=== PATIENT | female | born 1990 | race Caucasian/White ===

== ENCOUNTER 2018-01-20 08:30 | Emergency (ER) | payer OTHER ==
[~2018-01-20] VITALS: Ht 154.9 cm; Wt 48.5 kg
[~2018-01-20 08:30] MED LIST: ABILIFY 5 MG TAB5 MG PO; ADDERALL 30 MG30 MG PO; ATIVAN0.5 MG PO; BUTALB-APAP-CA1 EACH PO; CYMBALTA30 MG PO; FIORICET 50-301 EACH PO; [UNRECOGNIZED DRUG - OTHER] PO
[2018-01-20] MEDS ORDERED: [UNRECOGNIZED DRUG - OTHER] PO (08:40)
[2018-01-20 08:55] LABS: URINE BILIRUBIN NEGATIVE (Negative); URINE BLOOD 1+ (Negative); URINE CLARITY CLEAR; URINE COLOR YELLOW; URINE GLUCOSE-RANDOM NEGATIVE (Negative); URINE KETONES NEGATIVE (Negative); URINE LEUKOCYTES-REFLEX NEGATIVE (Negative); URINE NITRITE-REFLEX NEGATIVE (Negative); URINE PROTEIN NEGATIVE (Negative); URINE SPECIFIC GRAVITY 1.015 (1.005-1.030); URINE UROBILINOGEN 0.2 E.U./dl (0.2-1.0)
[2018-01-20 08:57] LABS: ABSOLUTE BASOPHILS 0.1 thou/uL (0.0-0.2); ABSOLUTE EOSINOPHILS 0.3 thou/uL (0.0-0.7); ABSOLUTE LYMPHOCYTES 2.3 thou/uL (0.8-5.3); ABSOLUTE MONOCYTES 0.4 thou/uL (0.0-1.2); ABSOLUTE NEUTROPHILS 4.4 thou/uL (1.6-8.1); BASOPHILS 0.7 %; EOSINOPHILS 3.6 %; HEMATOCRIT 40.9 % (37.0-47.0); HEMOGLOBIN 13.6 gm/dL (12.0-15.0); LYMPHOCYTES 30.6 %; MCH 30.5 pg (26.0-34.0); MCHC 33.3 g/dL (28.0-37.0); MCV 91.6 fL (80.0-100.0); MONOCYTES 5.7 %; MPV 7.6 fl. (7.2-11.1); NUCLEATED RBCS 0 /100WBC; PLATELET COUNT* 338 thou/uL (150-400); POLYS 59.4 %; RBC 4.47 mil/uL (4.20-5.00); WBC 7.4 thou/uL (4.0-11.0)
[2018-01-20 09:03] LABS: CREATININE 0.5 mg/dL (0.6-1.3); POTASSIUM 3.9 mmol/L (3.5-5.1)
[2018-01-20 09:03] LABS: CASTS None Seen /LPF (None Seen); MUCUS 4-6 Moderate strn/LPF (None Seen); SQUAMOUS 4-10 Moderate /LPF (0-3)
[2018-01-20 09:04] LABS: BACTERIA-REFLEX None Seen /HPF (None Seen); CRYSTALS None Seen /LPF (None Seen); URINE RBC 0-2 Rare /HPF (0-2); URINE WBC-REFLEX 0-5 Rare /HPF (0-5)
[2018-01-20 09:08] LABS: ALBUMIN 3.8 g/dL (3.4-5.0); TOTAL BILIRUBIN 0.3 mg/dL (<0.1-1.0); TOTAL PROTEIN 7.5 g/dL (6.4-8.2)
[2018-01-20 10:15] VITALS: BP 149/88
[2018-01-20] MEDS ORDERED: ULTRAM 50MG TAB50 MG PO (10:18)
[2018-01-20] MEDS ORDERED: ZOFRAN ODT4 MG SUBLING (10:18)
== END 2018-01-20 10:15 | disposition home or self-care (01) ==
LOC: M.ERS 08:30
PROVIDERS: Family Medicine
DX: G43.909 Migraine, unspecified, not intractable, without status migrainosus (principal); F17.210 Nicotine dependence, cigarettes, uncomplicated; Z88.0 Allergy status to penicillin; Z88.1 Allergy status to other antibiotic agents; Z90.49 Acquired absence of other specified parts of digestive tract

== ENCOUNTER → 2018-04-10 | Outpatient (CLI) | payer OTHER ==
[~2018-04-10] MED LIST changes: +ULTRAM 50MG TAB50 MG PO; +ZOFRAN ODT4 MG SUBLING
== END ==
LOC: M.ULTRA 11:00
DX: R10.32 Left lower quadrant pain (principal); R10.12 Left upper quadrant pain; Z90.49 Acquired absence of other specified parts of digestive tract

== ENCOUNTER 2019-02-24 20:45 | Emergency (ER) | payer OTHER, MEDICAID ==
[~2019-02-24] VITALS: Ht 154.9 cm; Wt 47.6 kg
[2019-02-24] MEDS ORDERED: EXCEDRIN CAPLE1 EACH PO (20:55)
[2019-02-24] MEDS ORDERED: PHENERGAN 25 MG25 M1 PO (22:02)
[2019-02-24 22:50] VITALS: BP 135/81
== END 2019-02-24 22:52 | disposition home or self-care (01) ==
LOC: M.ERS 20:45
DX: G43.909 Migraine, unspecified, not intractable, without status migrainosus (principal); Z90.49 Acquired absence of other specified parts of digestive tract; F17.210 Nicotine dependence, cigarettes, uncomplicated; Z88.0 Allergy status to penicillin; Z88.2 Allergy status to sulfonamides

== ENCOUNTER 2019-03-30 21:32 | Inpatient (IN) | payer OTHER, MEDICAID ==
[~2019-03-30] VITALS: Ht 154.9 cm; Wt 47.2 kg
--- NOTE | ~2019-03-30 | CON ---
[address] [address] CONSULTATION Name: CATHY CHOI Room: [address]#: [id number] Admission: 03/30/19 Attend Phys: Nayeli Romero Discharge: 03/31/19 Date of : 89 Report #: [id number] THIS REPORT FOR: //name// CC: Deirdre Chan DATE OF SERVICE: 03/31/2019 REFERRING PHYSICIAN: Dr. Symone Aleman. REASON FOR CONSULTATION: Right distal ureteral calculus and flank pain. HISTORY OF PRESENT ILLNESS: This is a 28-year-old female who reports passage of multiple stones spontaneously. She has seen a urologist, but is not sure who that was and states that it has been quite some time ago. She complains of a 3-4 week history of right-sided flank and abdominal pain as well as gross hematuria. Intermittent passage of clots. No passage of fragments. No difficulty voiding. No dysuria or fever. No nausea or vomiting. She has been straining her urine. She presented to the Emergency Department for worsening pain and was admitted. Urology was consulted. She reports her pain control is good at this time. PAST MEDICAL HISTORY: As above. Also, has a history of migraines and anxiety. ALLERGIES: INCLUDE CIPRO, PENICILLIN AND SULFA. SHE HAS BEEN GIVEN ROCEPHIN EMPIRICALLY. FAMILY HISTORY: Significant for stones in her brother and uncle. No other kidney disease in the family. PAST SURGICAL HISTORY: Include shoulder surgery, appendectomy, uterine surgery and cholecystectomy. SOCIAL HISTORY: She denies use of alcohol. Smokes tobacco daily. MEDICATION: List is reviewed. REVIEW OF SYSTEMS: As per the history of present illness. She denies any other recent illness. Denies chest pain, shortness of breath or cough. Denies numbness, weakness, dizziness. PHYSICAL EXAMINATION: VITAL SIGNS: Temperature 36.6, pulse 63, respirations 16, blood pressure 95/53. GENERAL: This is a 28-year-old female in no acute distress. She is awake, alert and answers questions appropriately. HEENT: Normocephalic, atraumatic. [place] [address] CONSULTATION Name: CATHY CHOI Room: [address]#: [id number] Admission: 03/30/19 Attend Phys: Nayeli Romero Discharge: 03/31/19 Date of : 89 Report #: [id number] Oropharynx is clear. NECK: Supple. No JVD. Respiratory effort and excursion are normal. LUNGS: Clear. CARDIAC: Rhythm is regular. Radial pulses are palpable. ABDOMEN: Soft, nontender and nondistended. There is no suprapubic fullness or tenderness. Spine is nontender. Right costovertebral angle is mildly tender. There is no left-sided tenderness. EXTREMITIES: Warm. Moves all extremities well. No peripheral edema. PELVIC: Deferred. LABORATORY DATA: Include a urinalysis showing 3-10 red cells, 6-15 white cells, positive epithelial cells and bacteria. Culture on that is pending. Urine test was negative. Sodium 142, potassium 3.6, chloride 106, CO2 29, BUN 12, creatinine 0.6, glucose 89. Hemoglobin 12.4, white count 8.9, platelet count 328,000. Noncontrast CT of the abdomen and pelvis report and images were reviewed. There are bilateral renal calculi. Some right hydronephrosis. There is a 4 mm stone in the region of the right distal ureter/ureterovesical junction. Clinical situation and options for management were discussed at length with the patient and her father who was present in the room. Options for management would include inpatient versus outpatient hydration/medical expulsive therapy. She has been started on Flomax. Other options would include outpatient shockwave lithotripsy and inpatient versus outpatient ureteroscopic stone manipulation. These options and their risks/benefits as well as post-procedural care and followup were discussed in detail. After considering options, she would like a trial of outpatient medical expulsive therapy. Prescriptions for Flomax and Gillett (30) were written. Risks and side effects were discussed. The patient was advised to return to the hospital for difficulty with pain control or vomiting or fever. Otherwise, she was provided contact information and advised to call the office when it is open Tuesday to set further followup. IMPRESSION: Right distal ureteral calculus with flank pain. Bilateral renal calculi. PLAN: Outpatient medical expulsive therapy if okay with primary service. Empiric antibiotics are not necessary given lack of fever, normal white count, likely contaminant on urinalysis. Culture is pending. By: [id number] 05Jeremy Kwan MD /[place]
[~2019-03-30 21:32] MED LIST changes: +EXCEDRIN CAPLE1 EACH PO; +PHENERGAN 25 MG25 M1 PO
[2019-03-30 21:50] VITALS: BP 126/74
[2019-03-30 21:50] LABS: URINE BILIRUBIN NEGATIVE (Negative); URINE BLOOD 3+ (Negative); URINE CLARITY CLEAR; URINE COLOR YELLOW; URINE GLUCOSE-RANDOM NEGATIVE (Negative); URINE KETONES NEGATIVE (Negative); URINE LEUKOCYTES-REFLEX 1+ (Negative); URINE NITRITE-REFLEX NEGATIVE (Negative); URINE PROTEIN NEGATIVE (Negative); URINE SPECIFIC GRAVITY 1.025 (1.005-1.030); URINE UROBILINOGEN 0.2 E.U./dl (0.2-1.0)
[2019-03-30] MEDS ORDERED: KEFLEX (21:54)
[2019-03-30 21:57] LABS: CASTS None Seen /LPF (None Seen); CRYSTALS None Seen /LPF (None Seen); MUCUS 0-3 Light strn/LPF (None Seen); SQUAMOUS 4-10 Moderate /LPF (0-3); URINE RBC 3-10 Few /HPF (0-2); URINE WBC-REFLEX 6-15 Few /HPF (0-5)
[2019-03-30 21:58] LABS: ABSOLUTE BASOPHILS 0.1 thou/uL (0.0-0.2); ABSOLUTE EOSINOPHILS 0.3 thou/uL (0.0-0.7); ABSOLUTE LYMPHOCYTES 3.9 thou/uL (0.8-5.3); ABSOLUTE MONOCYTES 0.5 thou/uL (0.0-1.2); ABSOLUTE NEUTROPHILS 4.1 thou/uL (1.6-8.1); BASOPHILS 0.9 %; EOSINOPHILS 3.9 %; HEMOGLOBIN 12.4 gm/dL (12.0-15.0); LYMPHOCYTES 43.8 %; MCHC 33.6 g/dL (28.0-37.0); MCV 95.2 fL (80.0-100.0); MONOCYTES 5.7 %; MPV 6.8 fl. (7.2-11.1); NUCLEATED RBCS 0 /100WBC; PLATELET COUNT* 328 thou/uL (150-400); POLYS 45.7 %; RBC 3.89 mil/uL (4.20-5.00); RDW-CV 13.1 % (10.5-14.5); WBC 8.9 thou/uL (4.0-11.0)
[2019-03-30 22:04] LABS: CALCIUM 9.2 mg/dL (8.5-10.1); CREATININE 0.6 mg/dL (0.6-1.3); POTASSIUM 3.6 mmol/L (3.5-5.1)
[2019-03-30 22:08] LABS: ALBUMIN 4.4 g/dL (3.4-5.0); TOTAL BILIRUBIN 0.4 mg/dL (<0.1-1.0); TOTAL PROTEIN 7.5 g/dL (6.4-8.2)
[2019-03-31 00:16] LABS: AMP/METHAMP POSITIVE (Negative); BARBITURATES Negative (Negative); BENZODIAZEPINES Negative (Negative); COCAINE Negative (Negative); METHADONE Negative (Negative); OPIATES Negative (Negative); PCP Negative (Negative); THC Negative (Negative)
[2019-03-31 03:38] VITALS: BP 106/61
[2019-03-31 07:17] VITALS: BP 95/53
--- NOTE | 2019-03-31 07:32 | NUR ---
UPON BOARDED ASSESSMENT THE PATIENT STATES SHE HAS HAD LARGER KIDNEY STONES IN THE PAST THAT SHE PASSED "JUST FINE" WITHOUT MEDICATION AND STATES SHE WOULD LIKE TO GO HOME IF UROLOGY APPROVES. PT TOLD SHE HAS ORDERS FOR BEING NPO. PT STATES SHE HAS A REALLY DRY MOUTH. PT GIVEN A MINT SWAB TO MOISTEN HER MOUTH WITH ORDERS NOT TO SWALLOW WATER.
[2019-03-31 10:47] VITALS: BP 95/53
[2019-03-31] MEDS ORDERED: NORCO 5-325 TA1 EAC1 PO (11:00)
[2019-03-31] MEDS ORDERED: FLOMAX0.4 MG PO (11:01)
[2019-03-31] MEDS ORDERED: MACROBID 100 M100 M2 PO (11:06)
--- NOTE | 2019-03-31 11:20 | NUR ---
PT WAS DISCHARGED ON INPATIENT SIDE BY [facility] [employer] EXAMINER.
--- NOTE | 2019-03-31 11:30 | NUR ---
MACROBID PRESCRIPTION CALLED INTO [facility] IN [place] BY VOICEMAIL. 2 PRESCRIPTIONS SENT WITH PATIENT.
[2019-03-31 11:31] VITALS: BP 105/63
== END 2019-03-31 11:20 | disposition home or self-care (01) | DRG 690 ==
LOC: M.ERS 21:32 → M.TBA-ER 23:27
PROVIDERS: Emergency Medicine; Nurse Practitioner Family; ADMIT Internal Medicine
DX: N13.6 Pyonephrosis (principal); G43.909 Migraine, unspecified, not intractable, without status migrainosus; Z90.49 Acquired absence of other specified parts of digestive tract; Z88.0 Allergy status to penicillin; Z88.5 Allergy status to narcotic agent; Z79.82 Long term (current) use of aspirin; Z79.899 Other long term (current) drug therapy

== ENCOUNTER 2019-06-08 19:07 | Emergency (ER) | payer OTHER, MEDICAID ==
[~2019-06-08] VITALS: Ht 154.9 cm; Wt 47.6 kg
[~2019-06-08 19:07] MED LIST changes: +FLOMAX0.4 MG PO; +KEFLEX; +MACROBID 100 M100 M2 PO; +NORCO 5-325 TA1 EAC1 PO
[2019-06-08 20:43] VITALS: BP 110/75
== END 2019-06-08 20:43 | disposition home or self-care (01) ==
LOC: M.ERS 19:07
DX: G43.909 Migraine, unspecified, not intractable, without status migrainosus (principal); F17.210 Nicotine dependence, cigarettes, uncomplicated; Z90.49 Acquired absence of other specified parts of digestive tract; Z87.442 Personal history of urinary calculi; Z98.890 Other specified postprocedural states; Z88.0 Allergy status to penicillin; Z88.1 Allergy status to other antibiotic agents; Z88.2 Allergy status to sulfonamides

== ENCOUNTER 2020-02-22 16:57 | Emergency (ER) | payer OTHER, MEDICAID ==
[~2020-02-22] VITALS: Ht 154.9 cm; Wt 45.4 kg
[2020-02-22 17:25] LABS: ABSOLUTE BASOPHILS 0.1 thou/uL (0.0-0.2); ABSOLUTE EOSINOPHILS 0.4 thou/uL (0.0-0.7); ABSOLUTE LYMPHOCYTES 3.5 thou/uL (0.8-5.3); ABSOLUTE MONOCYTES 0.5 thou/uL (0.0-1.2); ABSOLUTE NEUTROPHILS 2.9 thou/uL (1.6-8.1); BASOPHILS 1.1 %; HEMATOCRIT 36.3 % (37.0-47.0); HEMOGLOBIN 12.4 gm/dL (12.0-15.0); LYMPHOCYTES 47.4 %; MCH 32.7 pg (26.0-34.0); MCHC 34.1 g/dL (28.0-37.0); MCV 95.8 fL (80.0-100.0); MONOCYTES 7.1 %; MPV 7.1 fl. (7.2-11.1); NUCLEATED RBCS 0 /100WBC; PLATELET COUNT* 283 thou/uL (150-400); POLYS 39.4 %; RBC 3.79 mil/uL (4.20-5.00); WBC 7.5 thou/uL (4.0-11.0)
[2020-02-22 17:31] LABS: URINE BILIRUBIN NEGATIVE (Negative); URINE BLOOD 1+ (Negative); URINE CLARITY CLEAR; URINE COLOR YELLOW; URINE GLUCOSE-RANDOM NEGATIVE (Negative); URINE KETONES NEGATIVE (Negative); URINE LEUKOCYTES-REFLEX NEGATIVE (Negative); URINE NITRITE-REFLEX NEGATIVE (Negative); URINE PROTEIN NEGATIVE (Negative); URINE SPECIFIC GRAVITY >= 1.030 (1.005-1.030); URINE UROBILINOGEN 0.2 E.U./dl (0.2-1.0)
[2020-02-22 17:47] LABS: CALCIUM 8.7 mg/dL (8.5-10.1); CREATININE 0.6 mg/dL (0.6-1.3); POTASSIUM 3.8 mmol/L (3.5-5.1)
[2020-02-22 17:48] LABS: SQUAMOUS >10 Many /LPF (0-3)
[2020-02-22 17:49] LABS: MUCUS 4-6 Moderate strn/LPF (None Seen)
[2020-02-22 17:51] LABS: URINE RBC 3-10 Few /HPF (0-2)
[2020-02-22 17:52] LABS: BACTERIA-REFLEX 1-9 Few /HPF (None Seen); CASTS None Seen /LPF (None Seen); CRYSTALS None Seen /LPF (None Seen); URINE WBC-REFLEX 0-5 Rare /HPF (0-5)
[2020-02-22 17:55] LABS: ALBUMIN 4.4 g/dL (3.4-5.0); TOTAL BILIRUBIN 0.1 mg/dL (<0.1-1.0); TOTAL PROTEIN 7.8 g/dL (6.4-8.2)
[2020-02-22] MEDS ORDERED: NORCO 5-325 TA1 EAC1 PO (19:54)
[2020-02-22] MEDS ORDERED: ONDANSETRON ODT4 MG PO (19:54)
[2020-02-22] MEDS ORDERED: CITRATE OF MAG296 M1 PO (19:54)
[2020-02-22 20:32] VITALS: BP 122/80
== END 2020-02-22 20:33 | disposition home or self-care (01) ==
LOC: M.ERS 16:57
PROVIDERS: Physician Assistant
DX: K59.00 Constipation, unspecified (principal); R11.2 Nausea with vomiting, unspecified; G43.909 Migraine, unspecified, not intractable, without status migrainosus; Z88.1 Allergy status to other antibiotic agents; Z88.0 Allergy status to penicillin; Z88.2 Allergy status to sulfonamides; Z88.6 Allergy status to analgesic agent; Z87.442 Personal history of urinary calculi; Z90.49 Acquired absence of other specified parts of digestive tract

== ENCOUNTER 2020-09-26 09:26 | Emergency (ER) | payer OTHER, MEDICAID ==
[~2020-09-26] VITALS: Ht 154.9 cm; Wt 45.4 kg
[~2020-09-26 09:26] MED LIST changes: +CITRATE OF MAG296 M1 PO; +ONDANSETRON ODT4 MG PO
[2020-09-26 10:58] LABS: INFLUENZA A ANTIGEN Negative (Negative); INFLUENZA B ANTIGEN Negative (Negative)
[2020-09-26 11:15] VITALS: BP 130/72
== END 2020-09-26 11:16 | disposition home or self-care (01) ==
LOC: M.ERS 09:26
PROVIDERS: Emergency Medicine Emergency Medical Services
DX: B34.9 Viral infection, unspecified (principal); Z20.828 Contact with and (suspected) exposure to other viral communicable diseases; G43.909 Migraine, unspecified, not intractable, without status migrainosus; F17.210 Nicotine dependence, cigarettes, uncomplicated; Z87.442 Personal history of urinary calculi; Z90.49 Acquired absence of other specified parts of digestive tract; Z88.1 Allergy status to other antibiotic agents; Z88.6 Allergy status to analgesic agent; Z88.2 Allergy status to sulfonamides; Z88.0 Allergy status to penicillin